=== PATIENT | male | born 1945 | race Caucasian/White ===

== ENCOUNTER → 2018-11-24 | Outpatient (CLI) | payer MEDICARE, BC ==
[2018-03-24 11:02] VITALS: BP 137/59
[~2018-11-24] MED LIST: ACET325T9 PO; ASPI-612 PO; DEXT1DRO8 OP; LISI10TA2 PO; REGADENOSON 0.4 MG/5 ML DISP.SYRIN. IV ONE
--- NOTE | 2018-11-24 12:45 | RAD ---
MR#: [id number] Date of Study: 11/24/2018 Ordering Physician: JAN CASTELLON, Referring Physician: JURGEN OCAMPO Tech: MENDEL Krishnan, ARRT (R) (N) APPROVED REPORT Test Type: Pharmacological Stress Nurse/Tech: Zahra Hopkins R.N. Test Indications: CAD check Cardiac History: PPM, htn, dm,CAD Medications: See Electronic Medical Record Medical History: See Electronic Medical Record Resting EC% v-paced Resting Heart Rate: 66 bpm Resting Blood Pressure: 131/60mmHg Pretest Chest Pain: No chest pain Nurse/Tech Notes S1S2, lungs CTA Consent: The procedure was explained to the patient in lay terms. Informed consent was witnessed. Antonio eout was entered into [employer]. History and Stress Test performed by RT Trever VelezR) (N) Pharm. Details Pharmacologic stress testing was performed using 0.4mg per 5ml of regadenoson given intravenously ove r 7-10 seconds. Stress Symptoms No chest pain or symptoms. POST EXERCISE Reason for Termination: Infusion complete Max HR: 76 bpm Max Blood Pressure: 129/59mmHg Blood Pressure response to exercise: Normal blood pressure response during stress. Heart Rate response to exercise: wnl Chest Pain: No. Arrhythmia: No. ST Change: No. INTERPRETATION Stress EKG Conclusion: Baseline EKG showed paced ventricular rhythm. Nondiagnostic changes at peak st ress. No other arrhythmias. Imaging Protocol IMAGE PROTOCOL: Rest Tc-99m/stress Tc-99m 1 day Rest: Stress: Viability: Radiopharm.Tc99m YvquepjqzLt34o Sestamibi Nneq75lCt 33mCi Img Date 11/24/2018 11/24/2018 Rest Admin Site:IV - Right AntecubitalAdministrator:RT Agustin (R)(N) Stress Admin Site: IV - Right AntecubitalAdministrator: RT Jane Velez)(N) STRESS DATA End Diast. Vol.73.0mlLVEDV index BSA34.0ml End Syst. Vol.15.0mlLVESV index BSA7.0ml Myocardial Uciy247.0gEject. Gnvocmtz03.0% Stress Scores Regional WT0.00Summed WT4.00 Regional WM0.00Summed WM1.00 LV Perfusion Scintigraphic images showed small fixed defect involving the distal inferior wall consistent with echo or myocardial infarction without any reversibility. Wall Motion Normal left ventricle systolic function with ejection fraction calculated at 79%. LV Perf. Quant 17 Seg. SSS7.00 17 Seg. SRS5.00 17 Seg. SDS2.00 Stress Defect Extent (% LAD)5.00Rest Defect Extent (% LAD)3.10Rev. Defect Extent (% LAD)0.00 Stress Defect Extent (% LCX) 6.30Rest Defect Extent (% LCX)6.30Rev. Defect Extent (% LCX)0.00 Stress Defect Extent (% RCA)16.70Rest Defect Extent (% RCA)22.20Rev. Defect Extent (% RCA)0.00 Stress Defect Extent (% RAYA)10.00Rest Defect Extent (% RAYA)11.30Rev. Defect Extent (% RAYA)0.00 Conclusion 1. Regadenoson cardioisotope stress test showed small distal inferior wall infarct without any ischem ia. 2. Normal left ventricular systolic function with ejection fraction calculated at 79%. 3. Low risk for cardiac events. Signed by : Wagner Mullen, Electronically Approved : 11/24/2018 12:45:08
== END | disposition home or self-care (01) ==
LOC: NM 07:51
PROVIDERS: ATTEND Internal Medicine Cardiovascular Disease
DX: I47.2 Ventricular tachycardia (principal); I25.10 Atherosclerotic heart disease of native coronary artery without angina pectoris; I10 Essential (primary) hypertension; E11.9 Type 2 diabetes mellitus without complications
CPT/HCPCS: 78452; 93017; 96374; A9500; J2785

== ENCOUNTER → 2020-01-03 | Outpatient (CLI) | payer MEDICARE, BC ==
[2018-03-24 11:02] VITALS: BP 137/59
[~2020-01-03] MED LIST changes: -REGADENOSON 0.4 MG/5 ML DISP.SYRIN. IV ONE
--- NOTE | 2020-01-03 09:48 | CARD ---
MR#: [id number] Date of Study: 01/03/2020 Ordering Physician: JAN CASTELLON, Referring Physician: JAN CASTELLON, Tech: Shena Michelle [facility] APPROVED REPORT EXAM: Two-dimensional and M-mode echocardiogram with Doppler and color Doppler. Other Information Quality : Good INDICATION Pacemaker-Complete Heart Block 2D DIMENSIONS RVDd2.6 (2.9-3.5cm)Left Atrium(2D)2.9 (1.6-4.0cm) IVSd1.3 (0.7-1.1cm)Aortic Root(2D)3.4 (2.0-3.7cm) LVDd4.1 (3.9-5.9cm)LVOT Diameter2.3 (1.8-2.4cm) PWd1.1 (0.7-1.1cm)LVDs2.5 (2.5-4.0cm) FS (%) 30.0 %SV52.3 ml LVEF(%)55.0 (>50%) Aortic Valve AoV Peak Yunior.120.5cm/sAoV VTI22.3cm AO Peak GR.5.8mmHgLVOT Peak Yunior.113.2cm/s AO Mean GR.4mmHgAVA (VMAX)3.74cm2 KIA (VTI)4.10cm2 Mitral Valve MV E Ypsslstk34.1cm/sMV DECEL NPOB255gq MV A Fltixvha77.3cm/sE/A Ratio0.5 Tricuspid Valve TR P. Uklrstcx251tf/sRAP GWLNGRQS2vcKv TR Peak Gr.43hkExKGXX68ojLb Pulmonary Vein S1 Hvdlhtai80.8cm/sD2 Heqlkzda72.3cm/s LEFT VENTRICLE The left ventricle is normal size. There is normal left ventricular wall thickness. The left ventricu lar systolic function is normal. The Ejection Fraction is 55-60%. Apical motion consistent with pacem pedro activation. Transmitral Doppler flow pattern is Grade I-abnormal relaxation pattern. RIGHT VENTRICLE The right ventricle is normal size. The right ventricular systolic function is normal. There is a pac emaker lead in the right ventricle. ATRIA The left atrium size is normal. The right atrium size is normal. A pacemaker is seen in the right atr ium consistent with history. The interatrial septum is intact with no evidence for an atrial septal d efect or patent foramen ovale as noted on 2-D or Doppler imaging. AORTIC VALVE The aortic valve is calcified but opens well. Doppler and Color Flow revealed no significant aortic r egurgitation. There is no significant aortic valvular stenosis. MITRAL VALVE The mitral valve is calcified but opens well. There is no evidence of mitral valve prolapse. There is no mitral valve stenosis. Doppler and Color Flow revealed no mitral valve regurgitation noted. TRICUSPID VALVE The tricuspid valve is normal in structure and function. Doppler and Color Flow revealed trace tricus pid regurgitation. The PA pressure was estimated at 25 mmHg. There is no tricuspid valve prolapse or vegetation. PULMONIC VALVE The pulmonic valve is not well visualized. Doppler and Color Flow revealed no pulmonic valvular regur gitation. There is no pulmonic valvular stenosis. GREAT VESSELS The aortic root is normal in size. The ascending aorta is normal in size. The IVC is normal in size a nd collapses >50% with inspiration. PERICARDIAL EFFUSION There is no evidence of significant pericardial effusion. Critical Notification Critical Value: No <Conclusion> The left ventricular systolic function is normal. The Ejection Fraction is 55-60%. Apical motion consistent with pacemaker activation. Transmitral Doppler flow pattern is Grade I-abnormal relaxation pattern. There is a pacemaker lead in RA/RV. Trace tricuspid regurgitation. The PA pressure was estimated at 25 mmHg. There is no evidence of significant pericardial effusion. Signed by : Wagner Mullen, Electronically Approved : 01/03/2020 09:48:23
== END | disposition home or self-care (01) ==
LOC: ECHO 08:31
PROVIDERS: ATTEND Internal Medicine Cardiovascular Disease
DX: I08.0 Rheumatic disorders of both mitral and aortic valves (principal); I44.2 Atrioventricular block, complete; Z95.0 Presence of cardiac pacemaker
CPT/HCPCS: 93306